=== PATIENT | male | born 1965 | race Caucasian/White ===

== ENCOUNTER 2024-09-25 13:32 | Outpatient (AMB) | payer MEDICARE, MEDICAID, SELFPAY ==
--- NOTE | 2024-09-25 13:49 | HO.SPINEOV ---
Vital Signs 09/25/24 13:51 Height 6 ft Weight 155 lb BMI 21.0 Intake Visit Reasons: degenerative disc disease Intake Note: Mr. Mandel is here today c/o severe shooting pain to the low back. Mri Technologist Required: No Allergies No Known Allergies Allergy (Verified 09/25/24 13:52) Assessment & Plan Assessment & Plan (1) Adjacent segment disease of lumbar spine with history of fusion procedure: Code(s): M51.369 - Other intervertebral disc degeneration, lumbar region without mention of lumbar back pain or lower extremity pain; Z98.1 - Arthrodesis status Category: Medical (2) Bilateral sacroiliitis: Code(s): M46.1 - Sacroiliitis, not elsewhere classified Category: Medical Plan Dear colleague Thank you for referring Scott Mandel to the office today with a chief complaint of severe low back pain. HPI: This 58-year-old male had a L4-5 lumbar fusion done in 2001 for back pain. He states that his symptoms improved significantly. He comes into the office complaining progressive back pain. Specifically, the back pain is worse on the left side in the SI joint region. Recently, the right side also starts to produce pain in the SI joint area. He has difficulty sitting on the left side. He needs to pull his left leg up when he goes into the car and the symptoms wake him up at night. A brace improves the symptoms. He underwent injections by Dr. Schumacher from [facility] but he does not recall the type of injections. He has been using oxycodone for more than 15 years. He has minor radiation down his left thigh but this is old and was also present in 1999 when he original symptoms started. He denies weakness. The following conservative treatment options were tried without success antiinflammatories, tylenol, physical therapy, cortisone shots PMH: No significant history reported Medications: Gabapentin 300 mg 6 times a day, duloxetine 30 mg, meloxicam 7.5 mg, oxycodone 10 mg 4 times a day, multivitamins Allergies: NKDA Social history: Smokes 1/4 of a pack per day Physical Exam: Height 6 ft weight 155 lb. The patient is sitting towards the right side to relieve the left side. On inspection when standing there is a deviation of the lumbar spine towards the right side. There is severe pain on palpation of the left SI joint and moderately over the right side. SI joint provocative tests are positive (SHERRY, , thigh thrust test and compression test. Straight leg raise produces pain in the bilateral SI joint regions. No motor or sensory deficits. Radiological Studies: MRI of the lumbar spine and thoracic spine done at [facility] on 08/27/2024 and 08/04/2024 respectively. The MRI of the lumbar spine shows status post L4-5 lumbar fusion. There is adjacent degenerative disc disease L3-4 with Modic changes, disc collapse and central disc herniation causing mild to moderate central stenosis. There is also significant degenerative disc disease L5-S1. A standing four view lumbar x-ray shos L4-5 posterior instrumented fusion. Has a grade 1 retrolisthesis L3-4. There seems to be an auto fusion of L5-S1. Impression/Plan: This patient is suffering from predominantly pain around the left SI joint, the right side also start to be affected. Physical exam has positive provocative tests for sacroiliitis. MRI shows severe adjacent degenerative disc disease L3-4 . Differential diagnosis is sacroiliitis versus adjacent degenerative disc disease L3-4. I would like to obtain the records from [facility] to see where injections were given. Secondly, I want to order an a CT of the lumbar spine to assess if auto fusion is present at L5-S1 and to have a closer look at the bony structures. The patient will return to my clinic when the test is done. Thank you for allowing me to participate in your patients care. total time spent was 50 minutes in counseling ,coordination of plan, personal review of imaging, surgical decision making and subsequent plan Paul Vo MD, PhD Spine Fellowship Trained Neurosurgeon Director, [facility] Orders: Orders CT lumbar spine wo IV con Today M51.369 - Other intervertebral disc degeneration, lumbar region without mention of lumbar back pain or lower extremity pain, Z98.1 - Arthrodesis status XR lumbar spine 4V min Today M51.369 - Other intervertebral disc degeneration, lumbar region without mention of lumbar back pain or lower extremity pain, Z98.1 - Arthrodesis status Coding Level of Care Code New Pt Level 4 (57504) Diagnoses Adjacent segment disease of lumbar spine with history of fusion procedure M51.369; Z98.1 Bilateral sacroiliitis M46.1
[2024-09-25 13:51] VITALS: BMI 21.0
--- OUTSIDE RECORDS SUMMARY | 2024-09-25 14:08 | XMS_ITS | Encounter Summary ---
Author Organization [employer] Address [address] [place] [address] Care Team Providers Care Fish Bailer Name Role Phone Chandrika Peters PA-C Primary Care Provider Unav ailable Encounter Details Date Type Department Care Team (Late st Contact Info) Description 06/03/2022 Orders Only [place] [facility] [address] [place] [address] Chandrika Peters PA-C Social History Tobacco Use Types Packs/Day Years Used Date Smoking Tobacco: Never Assessed Sex and Gender Information Value Date Recorded Sex Assigned at Male 07/21/2022 6:43 AM EDT Legal Sex Male 8:35 PM EDT Gender Identity Male 07/21/2022 6:43 AM EDT Sexual Orientation Straight 07/21/2022 11 :44 AM EDT documented as of this encounter Plan of Treatment Not on file documented as of this encounter Visit Diagnoses Not on filedocumented in this encounter Care Teams Fish Bailer Relationship Specialty Start Date End Date Chandrika Peters PA-C PCP - General Family Medicine 06/03/22 documented as of this encounter
--- OUTSIDE RECORDS SUMMARY | 2024-09-25 14:08 | XMS_ITS | Encounter Summary ---
Author Organization [employer] Address [address] [place] [address] Care Team Providers Care Food Order Delivery Runner Name Role Phone Chandrika Peters PA-C Primary Care Provider Unav ailable Encounter Details Date Type Department Care Team (Late st Contact Info) Description 05/10/2022 Orders Only [place] [facility] [address] [place] [address] Chandrika Peters PA-C Social History Tobacco Use [...] on filedocumented in this encounter Care Teams Food Order Delivery Runner Relationship Specialty Start Date End Date Chandrika Peters PA-C PCP - General Family Medicine 06/03/22 documented as of this encounter
--- OUTSIDE RECORDS SUMMARY | 2024-09-25 14:08 | XMS_ITS | Clinical Summary ---
Author Organization [employer] Address [address] [place] [address] Care Team Providers Care Assistant Child Care Teacher Name Role Phone Chandrika Peters PA-C Primary Care Provider Unav ailable Allergies Active Allergy Reactions Criticality Noted Date Comments Trazodone 05/10/2022 Other reaction(s): low efficacy at 200mg Medications Multiple Vitamins-Room Server als (MULTIVITAMIN ADULT EXTRA C PO) 1 tablet in the morning. Active buPROPion (Wellbutrin) 100 MG tabletIndicati ons:Chronic pain syndrome TAKE 1 TABLET BY MOUTH EVERY DAY IN THE MORNING 90 tablet 1 01/15/20 24 Active oxyCODONE (Roxicodone) 10 MG immediate release tabletIndicati ons:Chronic pain syndrome Take 1 tablet (10 mg) by mouth every 6 (six) hours if needed for severe pain for up to 28 days. 112 tablet 09/03/19 25 025 Active gabapentin (Neurontin) 300 MG capsuleIndicat ions:Chronic pain syndrome TAKE 2 CAPSULES IN THE MORNING, 1 CAPSULE IN THE AFTERNOON AND 3 CAPSULE AT BEDTIME 180 capsule 1 09/03/19 25 Active DULoxetine (Cymbalta) [address] capsule Take 1 capsule (30 mg) by mouth Once per day. Do not crush or chew. 30 capsule 09/18/19 25 025 Active meloxicam (Mobic) 7.5 MG tablet Take 1 tablet (7.5 mg) by mouth Once per day. 30 tablet 11 09/18/19 25 026 Active gabapentin (Neurontin) 300 MG capsuleIndicat ions:Chronic pain syndrome TAKE 2 CAPSULES IN THE MORNING, 1 CAPSULE IN THE AFTERNOON AND 3 CAPSULE AT BEDTIME 180 capsule 1 07/11/19 25 025 Discontinued oxyCODONE (Roxicodone) 10 MG immediate release tabletIndicati ons:Chronic pain syndrome Take 1 tablet (10 mg) by mouth every 6 (six) hours if needed for severe pain for up to 28 days. 112 tablet 08/07/19 025 Discontinued(Re order (will not trigger notification to Pharmacy)) DULoxetine (Cymbalta) [address] capsule Take 1 capsule (30 mg) by mouth Once per day. Do not crush or chew. 30 capsule 09/18/19 25 025 Discontinued meloxicam (Mobic) 7.5 MG tablet Take 1 tablet (7.5 mg) by mouth Once per day. 30 tablet 11 09/18/19 25 025 Discontinued Active Problems Problem Noted Date Diagnosed Date Smoker 07/21/2022 Overview (10/26/2023): 2 cigs per day. Encouraged to quit Chronic pain syndrome 05/10/2022 Overview (10/26/2023): chronic, DDD L5-S1. RX oxycodone 10 mg 4x/day. Also take gabapentin 300mg TID. Routine utox 10/19/2021 came back positive for fentanyl. He denied illicit drug use. Oral drug swab and came back inappropriate for buprenorphine, fentanyl and morphine. 11/04/21. Had close follow up and counseled on risks of substance use. Has been appropriate drug screens since. Oral drug screen: 10/26/23 CSA 04/2023 MME: 60.00 Degenerative disc disease at L5-S1 level 023 Depression 05/10/2022 Overview (04/25/2023): rx wellbutrin taking only 100 mg daily as he was having side effects from BID. Feels good on current dose. Denies SI. He is not interested in BH. He stopped celexa due to libido issues Erectile dysfunction 05/10/2022 Mixed hyperlipidemia 05/10/2022 Overview (10/26/2023): last lipid panel 07/2021 tot chol 201, HDL 40, LDL 145. Disucssed slightly elevated and recommended work on low fat diet and exercise. Will repeat. Discussed diet and exercise. Opioid dependence with current use 05/10/2022 Primary insomnia 05/10/2022 Overview (07/21/2022): rx seroquel for many years takes qhs prn. rosario a few jenny per week. has hard time sleeping Osteoarthritis of spine with radiculopathy, cerv ical region 05/10/2022 Encounters Date Type Department Care Team Description 09/16/[address] [address] Chandrika Peters PA-C Med Change Request; Pain 09/13/2024 11:40 AM EDT Office Visit [address] [address] Rachell Jernigan FNP Chronic pain syndrome (Primary Dx); Degenerative disc disease at L5-S1 level; Osteoarthritis of spine with radiculopathy, cervical region 09/02/[address] [address] Rachell Jernigan FNP Chronic pain syndrome 09/02/[address] [address] Rachell Jernigan FNP Results 09/02/[address] [address] Chandrika Peters PA-C Chronic pain syndrome 08/05/[address] [address] Chandrika Peters PA-C Med Refill; Medication Problem 07/19/2024 Population Health Risk Score [facility] [address] [place] [phone] Provider, Population Health Generic 07/10/[address] [address] Golembeski, Rachell, CAN CLOSING MACHINE OPERATOR Chronic pain syndrome 07/10/2024 Maribeth Zacarias [facility] [address] [place] [address] Chandrika Peters PA-C Chronic pain syndrome from Last 3 Months Immunizations Immunization Administration Dates Next Due Influenza, IIV3, injectable 03/19/2020,1 ,03/09/2015,03/17 Influenza, Split (incl. piotr fied surface antigen) 03/12/2013,03/13/2012,07/20/2010 Pneumococcal Polysaccharide PPSV23 03/19/2020 Tdap 07/28/2022,10/19/2010 Zoster, Recombinant 03/19/2020 Family History Medical History Relation Name Comments Addiction problem Brother Diabetes Mother Fibromyalgia Mother Lupus Mother Neuropathy Mother Osteoarthritis Mother Relation Name Status Comments Brother Mother Social History Tobacco Use Types Packs/Day Years Used Date Smoking Tobacco: Every Day Cigarettes Smokeless Tobacco: Never Tobacco Cessation:Ready to Q uit: Not Asked; Counseling Given: Not Answered Alcohol Use Standard Drinks/Week Comments Not Currently 0 (1 standard drink = 0.6 oz pur e alcohol) Housing Stability Answer Date Recorded What is your housing situation today? I have lindsay yuan 05/06/[address] you li ve. Do you have problems with any of the following? None of the above 05/06/2024 Food Insecurity Answer Date Recorded Within the past 12 months, y ou worried that your food would run out before you got money to buy more: Never True 05/06/2024 Within the past 12 months,th e food you bought just didn't last and you didn't have enough money to get more: Never True Transportation Answer Date Recorded In the past 12 months, has l ack of transportation kept you from medical appts, meetings, work or from getting things needed for daily living? No 05/06/2024 Utilities Answer Date Recorded In the past 12 months, has t he electric, gas, oil or water company threatened to shut off services in your home? No 05/06/2024 Depression Answer Date Recorded Patient Health Questionnaire-2 Score 0 05/06/2024 Internet Access Answer Date Recorded Internet Access Q1 Yes 05/06/2024 Internet Access Q2 Not on file 05/06/2024 Sex and Gender Information Value Date Recorded Sex Assigned at Male 07/21/2022 6:43 AM EDT Legal Sex Male 8:35 PM EDT Gender Identity Male 07/21/2022 6:43 AM EDT Sexual Orientation Straight 07/21/2022 11 :44 AM EDT Last Filed Vital Signs Vital Sign Reading Time Taken Comments Blood Pressure 110/76 09/13/2024 11:39 AM EDT Pulse 76 09/13/2024 11:39 AM EDT Temperature 36.4 ??C (97.6 ??F) 09/13/2024 11:39 AM E DT Respiratory Rate 16 09/13/2024 11:39 AM EDT Oxygen Saturation 98% 03/24/2022 3:30 PM EST Inhaled Oxygen Concentration - - Weight 68 kg (150 lb) 09/13/2024 11:39 AM EDT Height 179.1 cm (5' 10.5 ) 09/13/2024 11:39 AM E DT Body Mass Index 21.22 09/13/2024 11:39 AM EDT Plan of Treatment Health Maintenance Due Date Last Done Comments CT Colonography 1965 FIT DNA/Cologuard 1965 FIT 1965 FOBT 1965 Sigmoidoscopy 1965 Disability Screening 1965 Pneumococcal Vaccine: 50+ Years (2 of 2 - PCV) 03/19/2021 03/19/2020 Alcohol/Substance Use Screening 05/06/2025 05/06/2024 COVID-19 Vaccine ( - season) 2025 Postponed from 01/07/2024 (Patient Refused) Depression Screening 05/06/2025 05/06/2024, 05/06/20 24 Influenza Vaccine (#1) 2025 , 02/08/2016, 03/09/2015, Additional history exists Postponed from 01/07/2024 (Patient Refused) SDOH Screening 05/06/2025 05/06/2024 Zoster Vaccines (2 of 2) 05/06/2025 03/19/2020 Pos tponed from 05/14/2020 (Patient Refused) Colonoscopy 08/06/2025 08/10/2020 Colorectal Cancer Screening 08/06/2025 Tobacco Screening 09/13/2025 09/13/2024 Lipid Panel 08/04/2026 08/04/2021, 03/31/2020 DTaP/Tdap/Td Vaccines (3 - Td or Tdap) 07/28/2032 07/28/2022, 10/19/2010 RSV Patients and Patients Aged 60 years or older (1 - 1-dose 75+ series) 2040 HIB Vaccines Aged Out No longer eligi ble based on patient's age to complete this topic HIV Screening Discontinued HPV Vaccines Aged Out No longer eligi ble based on patient's age to complete this topic Hepatitis A Vaccines Aged Out No long er eligible based on patient's age to complete this topic Hepatitis B Vaccines Discontinued Hepatitis C Screening Discontinued IPV Vaccines Aged Out No longer eligi ble based on patient's age to complete this topic Meningococcal B Vaccine Aged Out No l onger eligible based on patient's age to complete this topic Meningococcal Vaccine Aged Out No radha francisco eligible based on patient's age to complete this topic RSV under 20 months Aged Out No longe r eligible based on patient's age to complete this topic Rotavirus Vaccines Aged Out No longer eligible based on patient's age to complete this topic Procedures Procedure Name Priority Date/Time Associated Diagnosis Comments MR LUMBAR SPINE WO CONTRAST Routine 08/27/2024 Degenerative disc disease at L5-S1 level MR THORACIC SPINE WO CONTRAST Routine 08/04/2024 Degenerative disc disease at L5-S1 level LIPID PANEL, STANDARD Routine 08/04/2021 8:09 AM EDT COLONOSCOPY Routine 08/10/2020 12:00 AM EDT from Last 3 Months or Most Recently Relevant to Health Maintenance Results * MR Lumbar Spine w/o Contrast (08/27/2024) Anatomical Region Laterality Modality Spine, L-spine Magnetic Resonan ce Rachell Jernigan [facility] MRI PROCEDURES Final Result * MR Thoracic Spine w/o Contrast (08/04/2024) Anatomical Region Laterality Modality Spine, T-spine Magnetic Resonan ce [facility] MRI PROCEDURES Final Result * (ABNORMAL) -Lipid Panel (08/04/2021 8:09 AM EDT) LDL CHOLESTEROL, CALCULATED 145(H) (0-130) MG/DL [facility] CHOLESTEROL, TOTAL 201(H) (<200) MG/DL [facility] HDL CHOL 40 (>39) MG/DL [facility] NON HDL CHOLESTEROL (CALC) 161(H) (<160) MG/DL [facility] TRIGLYCERIDE 82 (<150) MG/DL [facility] 08/04/2021 8:09 AM EDT Chandrika Peters PA-C LAB BLOOD ORDERABLES Final Result [facility] [address] * -COLONOSCOPY (08/10/2020 12:00 AM EDT) Anatomical Region Laterality Modality Endoscopy 08/10/2020 Narrative 08/10/2020 12:00 AM EDT Refer to Fovea for result details [facility] Procedure: -COLONOSCOPY Procedure Note Provider, MD [place] - 09/01/2022 Refer to Foverenae for result details Legacy Procedure: -COLONOSCOPY Historical Provider ENDOSCOPY PROCEDURE ORDER DIAN Final Result from Last 3 Months or Most Recently Relevant to Health Maintenance Insurance MEDICARE [facility] Care Teams Assistant Child Care Teacher Relationship Specialty Start Date End Date Chandrika Peters PA-C PCP - General Family Medicine 06/03/22
== END 2024-09-25 14:22 | disposition home or self-care (01) ==
LOC: HO.HNS 13:35
PROVIDERS: PCP Nurse Practitioner Family; Referring Provider Nurse Practitioner Family; Visit Provider Neurological Surgery
DX: M51.369 Other intervertebral disc degeneration, lumbar region without mention of lumbar back pain or lower extremity pain (principal); Z98.1 Arthrodesis status; M46.1 Sacroiliitis, not elsewhere classified
CPT/HCPCS: 99204

== ENCOUNTER 2024-09-25 13:32 | Outpatient (REF) | payer MEDICARE, MEDICAID, SELFPAY ==
--- NOTE | ~2024-09-25 | XR_ITS ---
EXAMINATION: XR LUMBOSACRAL SPINE CLINICAL INFORMATION: M51.369 - Other intervertebral disc degeneration, lumbar region without ... COMPARISON: None available. TECHNIQUE: 4 views of the lumbar spine, inclusive of flexion and extension views, were obtained. FINDINGS: No significant scoliosis. There is straightening of the normal lordosis. There has been posterior instrumented fusion of L4-5 with transpedicular screws and posterior connecting rods. Hardware appears intact, well seated, without periprosthetic abnormality. There is no fracture, compression deformity, or suspicious bone lesion. There is moderate diffuse disc degeneration, with more severe changes at L3-4 and L5-S1. Neutral view demonstrates a 2 mm degenerative appearing retrolisthesis of L3 upon L4. In addition there is a trace retrolisthesis of L5 upon S1. Flexion and extension views demonstrate no pathologic motion to suggest instability. Early vascular calcifications in the soft tissues. Soft tissues otherwise normal. XR/XR lumbar spine 4V min IMPRESSION: 1. Moderate diffuse lumbar spondylosis. 2. Intact posterior fusion of L4-L5 with no definite radiographic complication. 3. No evidence of instability on flexion and extension views. Electronically signed by: Thad Cummins MD 09/25/2024 02:30 PM EDT
--- OUTSIDE RECORDS SUMMARY | 2024-09-25 14:36 | XMS_ITS | Clinical Summary ---
Author Organization [employer] Address [address]t [place] [address] Care Team Providers Care Planning And Analysis Manager Name Role Phone Chandrika Peters PA-C Primary Care Provider Unav ailable Allergies Active Allergy Reactions Criticality Noted Date Comments Trazodone 05/10/2022 Other reaction(s): low efficacy at 200mg Medications Multiple Vitamins-Icing Machine Operator als (MULTIVITAMIN ADULT EXTRA C PO) 1 [...] Type Department Care Team Description 09/16/[address] [address] Chandrika Peters PA-C Med Change Request; Pain 09/13/2024 11:40 AM EDT Office Visit [address] [address] Rachell Jernigan FNP Chronic pain syndrome (Primary Dx); Degenerative disc disease at L5-S1 level; Osteoarthritis of spine with radiculopathy, cervical region 09/02/[address] [address] Rachell Jernigan FNP Chronic pain syndrome 09/02/[address] [address] Rachell Jernigan FNP Results 09/02/[address] [address] Chandrika Peters PA-C Chronic pain syndrome 08/05/[address] [address] Chandrika Peters PA-C Med Refill; Medication Problem 07/19/2024 Population Health Risk Score [facility] [address] [place] [phone] Provider, Population Health Generic 07/10/[address] [address] Golembeski, Rachell, SAMPLE DYE MIXER Chronic pain syndrome 07/10/2024 Maribeth Zacarias [facility] [address] [place] [address] Chandrika Peters PA-C Chronic pain syndrome from [...] Spine, L-spine Magnetic Resonan ce Rachell Jernigan [facility] MRI PROCEDURES Final Result * MR Thoracic Spine w/o Contrast (08/04/2024) Anatomical Region Laterality Modality Spine, T-spine Magnetic Resonan ce [facility] MRI PROCEDURES Final Result * (ABNORMAL) -Lipid Panel (08/04/2021 8:09 AM EDT) LDL CHOLESTEROL, CALCULATED 145(H) (0-130) MG/DL [facility] CHOLESTEROL, TOTAL 201(H) (<200) MG/DL [facility] HDL CHOL 40 (>39) MG/DL [facility] NON HDL CHOLESTEROL (CALC) 161(H) (<160) MG/DL [facility] TRIGLYCERIDE 82 (<150) MG/DL [facility] 08/04/2021 8:09 AM EDT Chandrika Peters PA-C LAB BLOOD ORDERABLES Final Result [facility] [address] * -COLONOSCOPY (08/10/2020 12:00 AM EDT) [...] Relevant to Health Maintenance Insurance MEDICARE [facility] Care Teams Planning And Analysis Manager Relationship Specialty Start Date End Date Chandrika Peters PA-C PCP - General Family Medicine 06/03/22
--- OUTSIDE RECORDS SUMMARY | 2024-09-25 14:36 | XMS_ITS | Encounter Summary ---
Author Organization [email or web address] Address [address] [place] [address] Care Team Providers Care Fiber Picker Name Role Phone Chandrika Peters PA-C Primary Care Provider Unav ailable Encounter Details Date Type Department Care Team (Late st Contact Info) Description 05/10/2022 Orders Only [place] [facility] [address] [place] [address] Chandrika Peters PA-C Social History Tobacco Use [...] on filedocumented in this encounter Care Teams Fiber Picker Relationship Specialty Start Date End Date Chandrika Peters PA-C PCP - General Family Medicine 06/03/22 documented as of this encounter
--- OUTSIDE RECORDS SUMMARY | 2024-09-25 14:36 | XMS_ITS | Encounter Summary ---
Author Organization [employer] Address [address] [place] [address] Care Team Providers Care Strainer Mill Operator Name Role Phone Chandrika Peters PA-C Primary Care Provider Unav ailable Encounter Details Date Type Department Care Team (Late st Contact Info) Description 06/03/2022 Orders Only [place] [facility] [address] [place] [address] Chandrika Peters PA-C Social History Tobacco Use [...] on filedocumented in this encounter Care Teams Strainer Mill Operator Relationship Specialty Start Date End Date Chandrika Peters PA-C PCP - General Family Medicine 06/03/22 documented as of this encounter
== END 2024-09-25 13:33 | disposition home or self-care (01) ==
LOC: HO.HOSX 13:32
PROVIDERS: PCP Nurse Practitioner Family; Referring Provider Nurse Practitioner Family; Visit Provider Neurological Surgery
DX: M51.369 Other intervertebral disc degeneration, lumbar region without mention of lumbar back pain or lower extremity pain (principal); M46.1 Sacroiliitis, not elsewhere classified; Z98.1 Arthrodesis status
CPT/HCPCS: 72110; 99202

== ENCOUNTER → 2024-09-25 14:16 | Outpatient (BNV) | payer MEDICARE, MEDICAID, SELFPAY | PROVIDERS: PCP Nurse Practitioner Family; Referring Provider Nurse Practitioner Family; Visit Provider Radiology Diagnostic Radiology | DX: M47.896 Other spondylosis, lumbar region (principal) | CPT/HCPCS: 72110 ==